=== PATIENT | male | born 1970 | race Hispanic/Latino ===

== ENCOUNTER → 2025-03-10 10:06 | Outpatient (REF) | payer OTHER, SELFPAY ==
[2025-03-10 11:08] LABS: % Basophils 1.3 % (0-2); % Eosinophils 4.7 % (0-6); % Immature Granulocytes 0.2 % (0-0.5); % Lymphocytes 35.7 % (20.5-51.1); % Neutrophils 53.1 % (42.2-75.2); Absolute Basophils 0.1 10^3/uL (0-0.2); Absolute Eosinophils 0.3 10^3/uL (0-0.7); Absolute Lymphocytes 2.1 10^3/uL (1.2-3.4); Absolute Monocytes 0.3 10^3/uL (0.1-0.6); Absolute Neutrophils 3.2 10^3/uL (1.4-6.5); Hematocrit 41.1 % (39.0-52.0); Hemoglobin 14.9 g/dL (13.0-18.0); Mean Corp Hgb Conc. 36.3 g/dL (33.0-37.0); Mean Corpuscular Hgb 31.3 pg (27.0-31.0); Mean Corpuscular Volume 86.3 fL (80.0-94.0); Mean Platelet Volume 10.5 fL (7.4-10.4); Nucleated Red Blood Cells % 0 % (-); Platelet Count 148 10^3/uL (130-400); Red Blood Cell Count 4.76 10^6/uL (4.70-6.10); Red Cell Dist. Width 11.7 % (11.5-14.5)
[2025-03-10 11:34] LABS: ALT (SGPT) 33 U/L (0-50); AST (SGOT) 25 U/L (17-59); Albumin 4.5 g/dl (3.5-5.0); Alkaline Phosphatase 83 U/L (38-126); Blood Urea Nitrogen 18 mg/dl (9-20); Calcium 8.8 mg/dl (8.4-10.2); Carbon Dioxide 25 mmol/L (22-30); Chloride 106 mmol/L (98-107); Glucose 107 mg/dl (70-99); HDL Cholesterol 33 mg/dl; Potassium 3.9 mmol/L (3.5-5.1); Sodium 139 mmol/L (135-145); Total Bilirubin 0.9 mg/dl (0.2-1.3); Total Cholesterol 265 mg/dl (50-199); Total Protein 7.7 g/dl (6.3-8.2); eGFR > 60.00
[2025-03-10 11:51] LABS: Glycohemoglobin (HgbA1c) 5.4 % (4.0-5.6)
[2025-03-10 12:05] LABS: PSA, Total - Screen 2.18 ng/ml (0.0-4.0)
[2025-03-10 12:46] LABS: Triglyceride 2596 mg/dl (10-149)
[2025-03-10 13:51] LABS: LDL Cholesterol, Direct < 30 mg/dl
[2025-03-12 16:10] LABS: FIT-Fecal Occult Blood Interp Negative
== END ==
LOC: CLINIC 10:06
PROVIDERS: ATTENDING PHYSICIAN Internal Medicine
DX: R73.03 Prediabetes (principal); K76.0 Fatty (change of) liver, not elsewhere classified; Z87.438 Personal history of other diseases of male genital organs
CPT/HCPCS: 36415; 80053; 80061; 83036; 83520; 83721; 85025; 85045; G0103

== ENCOUNTER → 2025-07-05 09:35 | Outpatient (REF) | payer OTHER, SELFPAY ==
[2025-07-05 10:44] LABS: HDL Cholesterol 49 mg/dl; LDL Cholesterol, Calculated 171 mg/dl; Very Low Density Lipoprotein 63 mg/dl (0-30)
== END ==
LOC: REG 09:35
PROVIDERS: ATTENDING PHYSICIAN Internal Medicine
DX: E78.1 Pure hyperglyceridemia (principal)
CPT/HCPCS: 36415; 80061